=== PATIENT | male | born 2000 | race Caucasian/White ===

== ENCOUNTER 2018-07-24 01:40 | Emergency (ER) | payer MEDICAID, SELFPAY ==
[2018-07-24 01:41] VITALS: BP 149/88; PULSE 95; RESP 18; TEMP 36.5; O2SAT 95; BMI 31.8
--- NOTE | 2018-07-24 04:12 | ED.VISSUMM ---
- ER Visit Summary Date of Service: 07/24/18 Chief Complaint: Foreign body right ear canal History of Present Illness: The patient is a 18 M was removing his ear buds and had a piece of a get stuck in his right ear. This occurred around 12:30 AM today. Denies any other complaints. Physical Examination: Rubber earbud piece in right ear canal blocking the canal. Lungs clear to auscultation. Heart regular rhythm. Abdomen soft nontender. Neurologically he is awake and alert. Test Results: None Emergency Department Course and Treatment: I was able to use a long narrow forcep to remove the rubber earbud from his right canal. There is a small abrasion of the canal. But no bleeding. No swelling. The right tympanic membrane is normal. He is doing well after it was extracted. Treatment Plan: Corticosporin otic drops only if develops ear pain and canal swelling. Disposition: Discharge Impression: Foreign body removed from right ear by ER physician This note was generated with [employer] dictation software. It may contain incorrect words, spelling, and punctuation that were not noted in review of the chart prior to signing ED Disposition - Plan for ED Patient: Referrals: Tez Tolentino MD [Primary Care Provider] -
--- NOTE | 2018-07-24 04:14 | ED.DEP ---
ED Disposition - Plan for ED Patient: Disposition: Home or Assisted Living Instructions: Foreign Object in the Ear or Nose Referrals: Tez Tolentino MD [Primary Care Provider] - As Needed Additional Instructions: Only get the eardrops filled if you start having a lot of pain and swelling in your right ear canal.
[2018-07-24 04:30] VITALS: PULSE 95; RESP 18; O2SAT 96
== END 2018-07-24 04:30 | disposition home or self-care (01) ==
PROVIDERS: Emergency Provider Emergency Medicine; Family Provider Pediatrics; PCP Pediatrics
DX: T16.1XXA Foreign body in right ear, initial encounter (principal); S00.411A Abrasion of right ear, initial encounter; X58.XXXA Exposure to other specified factors, initial encounter; Y93.9 Activity, unspecified; Y92.9 Unspecified place or not applicable; Y99.9 Unspecified external cause status; Z79.899 Other long term (current) drug therapy
CPT/HCPCS: 99282

== ENCOUNTER → 2022-03-29 | Outpatient (CLI) | payer MEDICARE, SELFPAY ==
[2022-03-29 12:44] LABS: Absolute Neutrophil Count 3.4 X10^3/uL (2.0-7.7); Basophil# 0.04 X10^3/uL; Basophil% 0.7 % (0-1); Eosinophil# 0.17 X10^3/uL; Eosinophils% 2.8 % (0-5); Hematocrit 51.7 % (40-54); Hemoglobin 17.4 g/dL (13.0-16.5); Lymphocyte % 31.2 % (19-41); Mean Corp Hgb Conc 33.7 g/dL (32-36); Mean Corpuscular Hgb 30.3 pg (27.0-32.0); Mean Corpuscular Volume 89.9 fL (80-94); Mean Platelet Vol. 9.3 fl (6.2-12.0); Monocyte# 0.53 X10^3/uL; Monocyte% 8.7 % (0-10); NRBC Flagged by Analyzer 0 % (0-5); Neutrophil # 3.44 X10^3/uL (2.7-7.7); Neutrophil % 56.4 % (47-70); Platelet Count 268 K/mm3 (150-450); RBC Distribution Width CV 12.4 % (11.6-14.6); RBC Distribution Width SD 40.5 fl (35.1-43.9); Red Blood Count 5.75 M/mm3 (4.6-6.2); White Blood Count 6.1 K/mm3 (4.4-11.0)
[2022-03-29 13:15] LABS: ALB/GLOB Ratio 1.1 RATIO (0.9-2.4); AST(SGOT) 20 U/L (15-37); Alanine Aminotransfer ALT/SGPT 43 U/L (16-61); Alkaline Phosphatase 62 U/L (45-117); Anion Gap 8 (5-15); BUN 15 mg/dL (7-18); Calcium,Total 9.1 mg/dL (8.5-10.1); Chloride 104 mmol/L (98-107); Creatinine, Serum 1.07 mg/dL (0.70-1.30); EST Glomerular Filtration Rate 90 mL/min (>60); Est Glom Filt Rate - Afr Amer 109 mL/min (>60); Globulin 3.7 g/dL (2.2-4.2); Glucose 92 mg/dL (74-106); Potassium 3.6 mmol/L (3.5-5.1); Protein, Total 7.7 g/dL (6.4-8.2); Sodium Level 137 mmol/L (136-145)
== END | disposition home or self-care (01) ==
PROVIDERS: PCP Internal Medicine; Referring Provider Internal Medicine; Visit Provider Internal Medicine
DX: F42.9 Obsessive-compulsive disorder, unspecified (principal); F84.5 Asperger's syndrome; F90.9 Attention-deficit hyperactivity disorder, unspecified type
CPT/HCPCS: 36415; 80053; 85025

== ENCOUNTER → 2023-08-10 | Outpatient (CLI) | payer MEDICARE, MEDICAID, SELFPAY ==
[2023-08-10 15:37] LABS: Absolute Lymphocyte Count 1.48 X10^3/uL (0.83-4.51); Basophil# 0.03 X10^3/uL; Basophil% 0.4 % (0-1); Eosinophil# 0.11 X10^3/uL; Eosinophils% 1.5 % (0-5); Hematocrit 49.9 % (40-54); Hemoglobin 16.6 g/dL (13.0-16.5); Lymphocyte # 1.48 X10^3/ul (0.83-4.51); Lymphocyte % 20.2 % (19-41); Mean Corp Hgb Conc 33.3 g/dL (32-36); Mean Corpuscular Hgb 29.2 pg (27.0-32.0); Mean Corpuscular Volume 87.9 fL (80-94); Mean Platelet Vol. 9.6 fl (6.2-12.0); Monocyte# 0.64 X10^3/uL; Monocyte% 8.8 % (0-10); NRBC Flagged by Analyzer 0 % (0-5); Neutrophil # 5.04 X10^3/uL (2.7-7.7); Platelet Count 312 K/mm3 (150-450); RBC Distribution Width CV 12.8 % (11.6-14.6); RBC Distribution Width SD 41.3 fl (35.1-43.9); Red Blood Count 5.68 M/mm3 (4.6-6.2); White Blood Count 7.3 K/mm3 (4.4-11.0)
[2023-08-10 16:16] LABS: ALB/GLOB Ratio 1.1 RATIO (0.9-2.4); AST(SGOT) 28 U/L (15-37); Alanine Aminotransfer ALT/SGPT 46 U/L (16-61); Albumin, Serum 4.1 g/dL (3.2-5.0); Alkaline Phosphatase 70 U/L (45-117); Anion Gap 5 (5-15); BUN 13 mg/dL (7-18); BUN/Creat Ratio 11.7 RATIO (10-20); Calcium,Total 9.5 mg/dL (8.5-10.1); Chloride 108 mmol/L (98-107); Creatinine, Serum 1.11 mg/dL (0.70-1.30); EST Glomerular Filtration Rate 86 mL/min (>60); Est Glom Filt Rate - Afr Amer 104 mL/min (>60); Globulin 3.7 g/dL (2.2-4.2); Glucose 89 mg/dL (74-106); Potassium 4.1 mmol/L (3.5-5.1); Protein, Total 7.8 g/dL (6.4-8.2); Sodium Level 138 mmol/L (136-145)
== END | disposition home or self-care (01) ==
LOC: BIMLAB 13:24
PROVIDERS: PCP Internal Medicine; Visit Provider Internal Medicine
DX: F42.9 Obsessive-compulsive disorder, unspecified (principal); F90.9 Attention-deficit hyperactivity disorder, unspecified type
CPT/HCPCS: 36415; 80053; 85025

== ENCOUNTER → 2024-08-08 | Outpatient (CLI) | payer MEDICARE, MEDICAID, SELFPAY ==
[2024-08-08 16:35] LABS: Absolute Lymphocyte Count 1.95 X10^3/uL (0.83-4.51); Absolute Neutrophil Count 4.2 X10^3/uL (2.0-7.7); Basophil# 0.04 X10^3/uL; Basophil% 0.6 % (0-1); Eosinophil# 0.19 X10^3/uL; Eosinophils% 2.7 % (0-5); Hematocrit 46.5 % (40-54); Hemoglobin 15.8 g/dL (13.0-16.5); Lymphocyte # 1.95 X10^3/ul (0.83-4.51); Mean Corpuscular Volume 88.4 fL (80-94); Mean Platelet Vol. 9.3 fl (6.2-12.0); Monocyte# 0.57 X10^3/uL; Monocyte% 8.2 % (0-10); NRBC Flagged by Analyzer 0 % (0-5); Neutrophil % 60.2 % (47-70); Platelet Count 261 K/mm3 (150-450); RBC Distribution Width CV 12.5 % (11.6-14.6); RBC Distribution Width SD 40.5 fl (35.1-43.9); Red Blood Count 5.26 M/mm3 (4.6-6.2)
[2024-08-08 17:38] LABS: ALB/GLOB Ratio 1.5 RATIO (0.9-2.4); AST(SGOT) 28 U/L (<=37); Alanine Aminotransfer ALT/SGPT 27 U/L (<=46); Albumin, Serum 4.4 g/dL (3.5-5.0); Alkaline Phosphatase 69 U/L (40-129); Anion Gap 11 (5-15); BUN 17 mg/dL (4-19); Calcium,Total 9.1 mg/dL (7.6-11.0); Carbon Dioxide 21.9 mmol/L (21.0-32.0); Chloride 105 mmol/L (98-108); Creatinine, Serum 1.02 mg/dL (0.70-1.20); EST Glomerular Filtration Rate 104 (>60); Globulin 2.9 g/dL (2.2-4.2); Glucose 81 mg/dL (70-99); Protein, Total 7.3 g/dL (5.9-8.4); Sodium Level 139 mmol/L (133-145); Total Bilirubin 0.37 mg/dL (0.00-1.30); Vitamin B12 629 pg/mL (180-914)
== END | disposition home or self-care (01) ==
LOC: BIMLAB 15:42
PROVIDERS: PCP Internal Medicine; Referring Provider Internal Medicine; Visit Provider Internal Medicine
DX: R20.0 Anesthesia of skin (principal); R20.2 Paresthesia of skin; F42.9 Obsessive-compulsive disorder, unspecified; F84.5 Asperger's syndrome; F90.9 Attention-deficit hyperactivity disorder, unspecified type
CPT/HCPCS: 36415; 80053; 82607; 84443; 85025

== ENCOUNTER 2025-01-27 18:53 | Emergency (ER) | payer MEDICARE, MEDICAID, SELFPAY ==
[2025-01-27 18:54] VITALS: BP 147/92; PULSE 108; RESP 18; TEMP 36.6; O2SAT 100; BMI 33.8
--- NOTE | 2025-01-27 19:36 | EDS_ITS ---
HPI History of Present Illness Chief Complaint: Abscess Detail of Chief Complaint: Pain swelling ulnar side distal left middle finger Informant: patient Onset/Context/Timing Onset: Yesterday Context: Sudden Onset Timing: Continuous Quality: Pain Location: Ulnar side left long finger Current Severity: Mild Maximum Severity: Moderate Worsened by: Pushing on it and attempting to express pus from the paronychia Relieved by: Nothing Associated Symptoms Associated Symptoms: No other symptoms Narrative Narrative: Patient is a 24-year-old [id number] male presents with possible infection left middle finger. He has history of OCD, Asperger syndrome and ADHD. Mother states he picks at his nails. He squeezed it and attempt to express purulent material from the finger. He has no other complaints Prior similar symptoms: No Recent Illness/Hospitalization: No PFSH PFSH Medical History Seasonal allergies Asperger syndrome OCD (obsessive compulsive disorder) ADHD Home Medications ?Medication ?Instructions ?Recorded ?Last Taken ?Type sertraline 100 mg tablet 100 mg PO DAILY #90 tabs Unknown Rx loratadine 10 mg tablet 10 mg PO DAILY #30 tabs 07/05/12 Unknown Rx clonidine HCl 0.1 mg tablet 0.1 mg PO DAILY #90 tabs 0 12/26/24 Unknown Rx dextroamphetamine-amphetamine ER 50 mg PO QAM 30 days #30 ea 12/26/24 Unknown Rx 50 mg capsule,3 bead,ext release 24hr (Mydayis) melatonin 3 mg tablet 3 mg PO QHS PRN for insomnia #90 01/15/25 Unknown Rx TABLETS Allergy/AdvReac Type Severity Reaction Status Date / Time No Known Allergies Allergy Verified 01/27/25 18:57 Family History Father Diabetes Lupus anticoagulant disorder Mother Hypertension Grandmother Colon cancer Brother Brain cancer Grandfather Hypertension Aunt Factor V deficiency Aunt Factor V deficiency Uncle Factor V deficiency Other Arthritis Surgical History No pertinent past surgical history Social History adopted: No household members: family number of children: 0 current occupational status: employed 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 [employer] pets and animals: No sexually active: No Smoking Status: Never smoker Electronic Cigarette Use: not used alcohol intake: never substance use type: does not use caffeine: Yes (2) Type: carbonated beverages what type of physical activity do you participate in: none frequency: does not exercise do you feel safe at home: Yes ROS ROS ED Musculoskeletal Musculoskeletal: Denies arthralgias or myalgias Integumentary Reports abscess and rash Neurologic Neurologic: Denies paresthesias or weakness Hematologic/Lymphatic Hematologic/Lymphatic: Denies easy bleeding, easy bruising or lymphadenopathy EXAM Physical Exam Const Vital Signs: 01/27/25 18:54 Temperature 97.9 F Temperature Source Oral Pulse Rate 108 H Respiratory Rate 18 Blood Pressure 147/92 H Blood Pressure Mean 110 Pulse Ox 100 Oxygen Delivery Method Room Air Positive well nourished and well developed General Appearance ED: well developed and NAD HEENT Reports moist mucous membranes HEENT Narrative: Head is atraumatic and normocephalic. Eyes PERRL and EOMs intact bilaterally Resp normal respiratory effort Cardio regular rate and regular rhythm Extremity Extremity Narrative: Patient has redness swelling ulnar side of the finger. He has findings consistent with paronychia. There is no lymphangitis. There is no epitrochlear adenopathy. Median, radial and ulnar function tact. Extensor commonness tendon is intact and no pain with active range of motion. Flexor mechanism intact. Neuro CN's II-XII intact bilaterally Sensorium / Orientation: alert Psych mental status grossly normal Skin Skin Narrative: Paronychia left long finger. MDM MDM MDM Narrative Medical decision making narrative: Patient has a paronychia of his left long finger. The paronychia was unroofed using an 18 blade. My opinion there is no indication for any laboratory testing or imaging Patient is discharged home with appropriate home-going instructions. Discharge Plan Triage Chief Complaint: Abscess ED Provider: Bebo Cho Dx/Rx/DC Orders Clinical Impression: Paronychia of left middle finger, OCD (obsessive compulsive disorder), Asperger syndrome, ADHD Instructions: ED Paronychia Prescriptions: No Action sertraline 100 mg tablet 100 mg PO DAILY Qty: 90 1RF dextroamphetamine-amphetamine [Mydayis] 50 mg capsule, ER triphasic 24 hr 50 mg PO QAM 30 Days Qty: 30 0RF clonidine HCl 0.1 mg tablet 0.1 mg PO DAILY Qty: 90 1RF loratadine 10 mg tablet 10 mg PO DAILY Qty: 30 5RF melatonin 3 mg tablet 3 mg PO QHS PRN (Reason: for insomnia) Qty: 90 2RF Primary Care Provider: Shara Lane Referrals: Shara Lane MD [Primary Care Provider, Internal Medicine] - 3-5 Days if not improving Activity Restrictions/Additional Instructions: Soak in warm soapy water 6 times a day for the next 3 days. Print Language: Vietnamese Disposition Disposition: Home, Self Care
[2025-01-27 20:19] VITALS: BP 132/79; PULSE 78; RESP 18; TEMP 36.6; O2SAT 97
== END 2025-01-27 20:19 | disposition home or self-care (01) ==
PROVIDERS: Emergency Provider Emergency Medicine; PCP Internal Medicine; Visit Provider Emergency Medicine
DX: L03.012 Cellulitis of left finger (principal); F90.9 Attention-deficit hyperactivity disorder, unspecified type; F84.5 Asperger's syndrome; F42.9 Obsessive-compulsive disorder, unspecified; Z79.899 Other long term (current) drug therapy
CPT/HCPCS: 10060; 99282